=== PATIENT | female | born 1960 | race Caucasian/White ===

== ENCOUNTER 2017-01-16 17:34 | Emergency (ER) | payer OTHER ==
[~2017-01-16] VITALS: Ht 165.1 cm; Wt 91.9 kg
[~2017-01-16 17:34] MED LIST: RANITIDINE HCL150 MG PO; SAVELLA50 MG PO; VICODIN,LORT1 TABLET PO; ZOCOR10 M1 PO
[2017-01-16 18:12] LABS: HEMATOCRIT 44.9 % (36.0-46.0); MCH 30.8 PG (29.0-34.0); MCHC 33.2 G/DL (30.0-36.0); MEAN PLAT.VOLUME 9.5 uM^3 (9.5-12.4); PLATELET COUNT 228 K/uL (156-360); RBC DIS.WIDTH-SD 41.4 % (39-53); RED BLOOD COUNT 4.83 M/uL (3.80-5.20); WHITE BLOOD COUNT 8.4 K/uL (4.1-10.2)
[2017-01-16 18:24] LABS: CHLORIDE 105 mEq/L (99-109); SODIUM 141 mEq/L (136-147)
[2017-01-16 18:26] LABS: GLUCOSE 137 mg/dL (70-99)
[2017-01-16 18:27] LABS: ANION GAP 9 MEQ/L (2-14)
[2017-01-16 18:28] LABS: TOTAL BILIRUBIN 0.3 mg/dL (0.0-1.0)
[2017-01-16 18:30] LABS: ALKALINE PHOSPHATASE 75 IU/L (3-129); GFR ESTIMATE (CALCULATED) > 59 mL/min/
[2017-01-16 18:33] LABS: UREA NITROGEN (BUN) 13 mg/dL (9-23)
[2017-01-16 18:40] LABS: QUANTITATIVE HCG < 4.0 MIU/ML
[2017-01-16 18:50] LABS: DIRECT BILIRUBIN 0.1 mg/dL (0.0-0.3)
[2017-01-16 18:51] LABS: LIPASE 33 U/L (1.0-51.0)
[2017-01-16 18:54] LABS: ADD MIUA? NO; BILIRUBIN NEGATIVE; BLOOD NEGATIVE; COLOR STRAW ((YELLOW)); GLUCOSE (STRIP) NEGATIVE; KETONES NEGATIVE; LEUKOCYTES NEGATIVE; NITRITE NEGATIVE; PROTEIN (STRIP) NEGATIVE; SPECIFIC GRAVITY 1.008 (1.000-1.030); UCUL ADDED? NO; UROBILINOGEN 0.2 MG/DL (0.2-1.0)
[2017-01-16] MEDS ORDERED: ZOFRAN ODT4 MG PO (20:32)
[2017-01-16 20:51] VITALS: BP 136/75
== END 2017-01-16 20:52 | disposition home or self-care (01) ==
LOC: EME 17:34
DX: K80.50 Calculus of bile duct without cholangitis or cholecystitis without obstruction (principal); R10.11 Right upper quadrant pain; F17.200 Nicotine dependence, unspecified, uncomplicated; I10 Essential (primary) hypertension; E78.5 Hyperlipidemia, unspecified; K21.9 Gastro-esophageal reflux disease without esophagitis
CPT/HCPCS: 74176; 76705; 80053; 81003; 82248; 83690; 84702; 85027; 99281; 99283; J1885

== ENCOUNTER → 2017-02-07 | Outpatient (CLI) | payer OTHER ==
[~2017-02-07] VITALS: Ht 165.1 cm; Wt 90.7 kg
[~2017-02-07] MED LIST changes: +CLARITIN10 M3 PO; +ZOFRAN ODT4 MG PO
== END | disposition home or self-care (01) ==
LOC: AMB 11:49
PROC: 0DBN8ZX Excision of Sigmoid Colon, Via Natural or Artificial Opening Endoscopic, Diagnostic (ICD-10-PCS; principal; 2017-02-07)
DX: Z12.11 Encounter for screening for malignant neoplasm of colon (principal); K63.5 Polyp of colon; R10.11 Right upper quadrant pain; R11.0 Nausea; E78.5 Hyperlipidemia, unspecified; I10 Essential (primary) hypertension; Z98.1 Arthrodesis status; F17.200 Nicotine dependence, unspecified, uncomplicated; Z88.5 Allergy status to narcotic agent; Z88.8 Allergy status to other drugs, medicaments and biological substances
CPT/HCPCS: 88305

== ENCOUNTER → 2017-04-02 | Outpatient (CLI) | payer OTHER | END | disposition home or self-care (01) | LOC: NUC 06:44 | DX: R10.11 Right upper quadrant pain (principal); R14.0 Abdominal distension (gaseous); R11.0 Nausea | CPT/HCPCS: 78226; A9537 ==